=== PATIENT | female | born 1945 | race Caucasian/White ===

== ENCOUNTER → 2016-07-12 | Outpatient (CLI) | payer OTHER ==
[~2016-07-12] MED LIST: CAPOTEN PO; ESTRACE0.5 MG PO; FOSAMAX70 MG PO; HYDROCHLOR50 MG PO; IBU800 M1 PO; NAPROSYN500 MG PO; PERCR 7.5 PO; PREMARIN .3MG0.3 MG PO; PROBIOTIC FORMU1 CAP PO; VALIUM 5MG T5 MG/TAB PO
== END ==
LOC: MC.RAD 08:29
DX: Z12.31 Encounter for screening mammogram for malignant neoplasm of breast (principal)

== ENCOUNTER 2016-08-29 07:32 | Emergency (ER) | payer OTHER ==
[~2016-08-29] VITALS: Ht 157.5 cm; Wt 72.7 kg
[~2016-08-29 07:32] MED LIST changes: -PROBIOTIC FORMU1 CAP PO
[2016-08-29] MEDS ORDERED: PROBIOTIC FORMU1 CAP PO (07:50)
[2016-08-29 08:02] LABS: BASO % 0.4 % (0.0-2.0); EOS # 0.2 (0.0-0.7); EOS % 3.4 % (0-4.0); GRAN # 2.7 (1.4-6.5); GRAN % 39.8 % (42.2-75.2); HEMATOCRIT 40.8 % (37.0-47.0); LYMPH # 3.2 (1.2-3.4); LYMPH % 47.1 % (20.0-51.0); MEAN CELL VOLUME 87 fl (80.0-100.0); MEAN CORPUSCULAR HEMOGLOBIN 30 pg (27.0-31.0); MEAN CORPUSCULAR HGB CONC 34 g/dl (33.0-37.0); MEAN PLATELET VOLUME 11.2 fl (7.4-10.4); MONO # 0.6 (0.1-0.6); PLATELET COUNT 211 K/mm3 (130-400); RED BLOOD COUNT 4.67 M/mm3 (4.10-5.30); REDCELL DISTRIBUTION WIDTH-CV 12.3 % (11.5-14.5); WHITE BLOOD COUNT 6.8 K/mm3 (4.8-10.8)
[2016-08-29 08:22] LABS: ADJUSTED CALCIUM 10.3 mg/dL (8.4-10.2); ALANINE AMINOTRANSFERASE 30 U/L (9-52); ALBUMIN 3.9 gm/dL (3.5-5.0); ALKALINE PHOSPHATASE 82 U/L (50-136); ANION GAP 14 mmol/L (7-16); BILIRUBIN,TOTAL 0.7 mg/dL (0.0-1.0); BLOOD UREA NITROGEN 17 mg/dL (7-17); CALCIUM 10.2 mg/dL (8.4-10.2); CARBON DIOXIDE 24 mmol/L (22-30); CHLORIDE 102 mmol/L (98-107); CREATININE, serum 0.85 mg/dL (0.52-1.25); GLUCOSE 83 mg/dL (74-106); LIPASE 113 U/L (23-300); POTASSIUM 3.4 mmol/L (3.4-5.0); SODIUM 140 mmol/L (137-145); TOTAL PROTEIN 7.2 gm/dL (6.4-8.2)
[2016-08-29 08:37] LABS: TROPONIN-I < 0.012 ng/mL (0.000-0.034)
[2016-08-29 09:44] LABS: PH 5 (5-8); URINE APPEARANCE Hazy; URINE BACTERIA None Seen /hpf; URINE BILIRUBIN Negative (NEGATIVE); URINE BLOOD Negative (NEGATIVE); URINE COLOR Yellow; URINE GLUCOSE Negative (NEGATIVE); URINE KETONE Trace (NEGATIVE); URINE RBC 0-2 /hpf; URINE UROBILINOGEN Negative (NEGATIVE); URINE WBC 0-2 /hpf
[2016-08-29 10:18] VITALS: BP 127/69; PULSE 68
== END 2016-08-29 10:19 | disposition home or self-care (01) ==
LOC: COL.ER 07:32
PROVIDERS: Family Medicine
DX: R10.13 Epigastric pain (principal); I10 Essential (primary) hypertension
CPT/HCPCS: J2405; J7030; Q9967

== ENCOUNTER → 2017-07-13 | Outpatient (CLI) | payer MEDICARE, BC ==
[~2017-07-13] MED LIST changes: +PROBIOTIC FORMU1 CAP PO
== END ==
LOC: MC.RAD 10:20
DX: Z12.31 Encounter for screening mammogram for malignant neoplasm of breast (principal)

== ENCOUNTER → 2018-09-18 | Outpatient (CLI) | payer MEDICARE, BC | LOC: MC.RAD 10:04 | DX: Z12.31 Encounter for screening mammogram for malignant neoplasm of breast (principal) ==